=== PATIENT | male | born 1950 | race Caucasian/White ===

== ENCOUNTER → 2017-02-12 | Outpatient (CLI) | payer MEDICARE ==
[~2017-02-12] MED LIST: BISO5TAB5 PO; CALCCHW8 PO; COUM1TAB17 PO; COUM2.5T17 PO; LOSA50TA5 PO; MELO7.5T7 PO; MULT1TAB10 PO; NEXI40CA PO; ROPI0.5T PO; ROSU40TA PO; TYLE325T5 PO; VITA500T PO; ZANT1TAB PO
--- NOTE | 2017-02-12 14:06 | REP ---
LUMBAR SPINE, FIVE VIEWS: HISTORY: Back pain. The patient is status post L4 to S1 anterior and posterior spinal fusion and L4-5 laminectomy. Metal cages are present anteriorly and metal rods and pedicle screws posteriorly. There is no acute fracture or subluxation. The L2-3 and L3-4 intervertebral discs are decreased in height. Vacuum phenomenon is present at the L3-4 level. These findings are consistent with disc degeneration. Anterior osteophytes are present on L2 through L4. There is narrowing of the L3-4 facet joints with associated sclerosis. A dorsal column stimulator enters the spinal canal at the T12-L1 level. IMPRESSION: 1. The patient is status post L4 to S1 anterior and posterior spinal fusion and L4-5 laminectomy. There is anatomic alignment of the lumbar spine. 2. Degenerative change as described above. ? Signed by Oz Everett MD 02/12/2017 02:07 P
--- NOTE | 2017-02-12 14:18 | REP ---
THORACIC SPINE TWO VIEW: HISTORY: Back pain. The examination is limited as only lateral radiographs were obtained. There is no acute fracture or subluxation. The intervertebral discs are normal in height. Small anterior osteophytes are present in the mid and lower thoracic spine. IMPRESSION: Degenerative change as described above. Signed by Oz Everett MD 03/05/2017 03:40 P
== END ==
LOC: M RAD 12:55
PROVIDERS: ATTEND Physician Assistant Surgical
DX: M51.36 Other intervertebral disc degeneration, lumbar region (principal); T85.113A Breakdown (mechanical) of implanted electronic neurostimulator, generator, initial encounter; Y83.1 Surgical operation with implant of artificial internal device as the cause of abnormal reaction of the patient, or of later complication, without mention of misadventure at the time of the procedure; M51.34 Other intervertebral disc degeneration, thoracic region

== ENCOUNTER 2017-03-27 05:52 | Day surgery (SDC) | payer MEDICARE ==
[~2017-03-27] VITALS: Ht 170.2 cm; Wt 77.1 kg
[~2017-03-27 05:52] MED LIST changes: -TYLE325T5 PO
[2017-03-27] MEDS ORDERED: LR 1,000 ML IV ONE (06:15)
[2017-03-27 06:49] LABS: INR 0.94
[2017-03-27] MEDS ORDERED: THROMBIN SOLN 20,000 UNITS KIT As Ordered ONE (07:14)
[2017-03-27] MEDS ORDERED: BUPIVACAINE HCL 0.5% 30 ML VIAL As Ordered ONE (07:15)
[2017-03-27] MEDS ORDERED: BACITRACIN PWD 50,000 UNITS VIAL As Ordered ONE (07:15)
[2017-03-27] MEDS ORDERED: BUPIVACAINE LIPOSOME/PF 1.3% 20 ML VIAL (13.3MG/ML)(EXPAREL) As Ordered ONE (07:15)
[2017-03-27] MEDS ORDERED: ROCURONIUM BROMIDE 50 MG/5 ML VIAL/SYRINGE As Ordered ONE (07:19)
[2017-03-27] MEDS ORDERED: PROPOFOL 200 MG/20 ML VIAL As Ordered ONE (07:19)
[2017-03-27] MEDS ORDERED: LIDOCAINE 2% INJ 100 MG/5 ML SDV (FOR ANES.) As Ordered ONE (07:19)
[2017-03-27] MEDS ORDERED: dexameTHASONE 4 MG/ML 1ML VIAL (J1100) As Ordered ONE (07:19)
[2017-03-27] MEDS ORDERED: MIDAZOLAM INJ 2 MG/2 ML VIAL (J2250) As Ordered ONE ×2 (07:20→08:03)
[2017-03-27] MEDS ORDERED: fentaNYL 100 MCG/2 ML INJECTION (J3010) As Ordered ONE (07:24)
[2017-03-27] MEDS ORDERED: VANCOMYCIN HCL 1,000 MG, VIAL MATE ADAPTER 1 EACH in D5W 250 ML IV ONE ×2 (07:30→14:30)
[2017-03-27] MEDS ORDERED: SEVOFLURANE INHAL SOLN 250 ML BTL As Ordered ONE (08:06)
[2017-03-27] MEDS ORDERED: ePHEDrine SULFATE 25 MG/5 ML(5MG/ML) SYRINGE As Ordered ONE ×2 (09:47→10:05)
[2017-03-27] MEDS ORDERED: PHENYLephrine HCL 500 MCG/5 ML (100MCG/ML) SYRINGE (J2370) As Ordered ONE (09:47)
[2017-03-27] MEDS ORDERED: GLYCOPYRROLATE INJ 0.2 MG/ML 2 ML VIAL As Ordered ONE (10:11)
[2017-03-27] MEDS ORDERED: NEOSTIGMINE 10 MG/10 ML VIAL (J2710) As Ordered ONE (10:11)
[2017-03-27] MEDS ORDERED: ONDANSETRON 4MG/2ML VIAL (J2405) As Ordered ONE (10:15)
[2017-03-27] MEDS ORDERED: LR 1,000 ML IV SCH (11:15)
[2017-03-27] MEDS ORDERED: ONDANSETRON 4MG/2ML VIAL (J2405) IV PRN (11:15)
[2017-03-27] MEDS ORDERED: fentaNYL 100 MCG/2 ML INJECTION (J3010) IV PRN (11:15)
[2017-03-27 13:00] VITALS: BP 134/72
[2017-03-27 13:30] VITALS: BP 134/71
[2017-03-27 14:30] VITALS: BP 136/71
[2017-03-27] MEDS: ACETAMINOPHEN TAB 650MG DOSE (2X325MG) PO SCH ×2 (14:53→17:42)
[2017-03-27 15:30] VITALS: BP 120/62
[2017-03-27] MEDS ORDERED: TYLE325T5 PO (16:05)
--- NOTE | 2017-03-27 17:08 | ROOPDOC ---
[facility] Report Of Operation Report of Operation DATE OF SURGERY: 03/27/2017 SURGEON: Dr. Robbi Meeks CORE INSPECTOR: None PREOPERATIVE DIAGNOSIS: Spinal Cord Stimulation system removal POSTOPERATIVE DIAGNOSIS: Same PROCEDURE PERFORMED: 1. SCS system removal with 2 separate incisions. ANESTHESIA: GETA + 20 cc Esparel. ESTIMATED BLOOD LOSS: 50 cc. FINDINGS : SCS system; no infection. DRAINS: 0 COMPLICATIONS: None. DISPOSITION: Stable to the PACU. INDICATIONS FOR THE PROCEDURE HISTORY: Mr. Zabala is a 66 y/o Male with past medical history of low back and leg pain, which was treated by implantation of spinal cord stimulator (SCS). Long time ago he lost previous pain control and wants to remove hardware. SURGICAL RISKS: The patient and his family were well apprised of all objectives, benefits, risks and potential complications of the procedure, including but not limited to : worsening of current status, the possible need for further procedures, the risk of infection, headaches, CSF leak, possible spinal nerve injury resulting in paralysis, infection, injury to major vessels causing hemorrhage, stroke, loss of language function, coma and even . No assurance was given whether symptoms would improve following the procedure. The surgery is technically difficult procedure and despite the significant discomfort for the patient and the best effort of the physician, the surgery may be unsuccessful or may need to be aborted. Informed consent was obtained and secured in the chart after the patient and family voiced understanding of these risks and decided to proceed with the operation. DESCRIPTION OF THE PROCEDURE The patient was transferred to the operating room. He was given preoperative prophylactic IV antibiotics. ANESTHESIA: The patient was sedated and intubated without difficulty by the anesthesia service. Eyes were taped shut after ointment was applied to prevent corneal abrasion. A Litzy Hugger was placed over the upper body to maintain control of core body temperature. POSITIONING: The patient was turned prone on gel pads of Carlos frame. All pressure points were carefully padded. OPERATIVE TECHNIQUE: The patient was prepped and draped in the standard sterile fashion. Previous surgical scar in midline was excised and electrodes anchors were dissected from scar tissue, stay sutures were cut, and wire electrodes pulled out spinal canal without any difficulty. Hemostasis was meticulously achieved. The wound was copiously irrigated with antibiotic saline solution. Subcutaneous tissue and skin was approximated with 1.0 Vycril suture. The skin was then approximated with 3.0 Vycrilsuture and sealed with skin closure system Prineo. Patient the was undraped and transferred to OR table in supine position. He was again was prepped and draped in the standard sterile fashion. Second surgical scar in right flank were excised and IPG, connectors and leads have been removed without difficulty. IPG was disconnected from lead and removed. Hemostasis was meticulously achieved. The wounds were copiously irrigated with antibiotic saline solution. Subcutaneous tissue and skin was approximated with 1.0 Vycril suture. The skin was then approximated with 3.0 Vycril suture and sealed with skin closure system Prineo. All sponge counts, needle counts and instrument counts were correct at the end of the case times two. The patient tolerated the procedure well, without any complications and was transferred in stable condition to the recovery room. ROBBI MEEKS MD Mar 27, 2017 17:08
== END 2017-03-27 18:10 | disposition home or self-care (01) ==
LOC: M SDC 05:52 → UNDOADMIN 05:52 → M OR 05:52 → EDSTATUS 07:30 → M OR 12:45 → M MS5PR 12:45 → M SDC 18:10 → UNDODISIN 18:10
PROVIDERS: ATTEND Neurological Surgery
DX: T85.192A Other mechanical complication of implanted electronic neurostimulator of spinal cord electrode (lead), initial encounter (principal); I10 Essential (primary) hypertension; K21.9 Gastro-esophageal reflux disease without esophagitis; I25.2 Old myocardial infarction; G20 Parkinson's disease; C61 Malignant neoplasm of prostate; I25.10 Atherosclerotic heart disease of native coronary artery without angina pectoris; E78.5 Hyperlipidemia, unspecified; K44.9 Diaphragmatic hernia without obstruction or gangrene; K58.9 Irritable bowel syndrome, unspecified; K64.9 Unspecified hemorrhoids; M12.9 Arthropathy, unspecified; G47.9 Sleep disorder, unspecified; E78.00 Pure hypercholesterolemia, unspecified; Z88.0 Allergy status to penicillin; Z88.1 Allergy status to other antibiotic agents; Z88.2 Allergy status to sulfonamides; Z88.5 Allergy status to narcotic agent; Z88.8 Allergy status to other drugs, medicaments and biological substances; Z91.048 Other nonmedicinal substance allergy status; Z79.899 Other long term (current) drug therapy; Z79.01 Long term (current) use of anticoagulants; Z87.442 Personal history of urinary calculi; Z86.711 Personal history of pulmonary embolism; Z95.4 Presence of other heart-valve replacement; Z92.3 Personal history of irradiation; Z98.61 Coronary angioplasty status
CPT/HCPCS: 36415; 63662; 63688; 85610; 88300; 96374; 96376; J0690; J1100; J2250; J2370; J2405; J2710; J3010; J3370